=== PATIENT | female | born 2000 | race Caucasian/White ===

== ENCOUNTER 2024-10-03 16:20 | Observation (INO) ==
--- NOTE | 2024-10-03 16:34 | Emergency Department Note ---
Impression & Plan Traumatic hematoma of lower back, Back pain, Lumbar transverse process fracture, Acute hyponatremia, Fracture of lumbar spine ED Provider Note NAME: MARIANA MARTINO AGE: 24 SEX: F : 2000 ARRIVES VIA: Walk-In INFORMANT: Patient, ED PROVIDER(S): Antoine Bustamante MD CHIEF COMPLAINT: Horse carriage accident, low back pain MEDICAL DECISION MAKING: Patient presents due to concern for being run over by a horse carriage with associated low back pain. IV was established and blood work was obtained. Patient was ordered IV morphine IV Tylenol and taken over for CAT scan CT head neck chest abdomen pelvis as well as thoracic and lumbar spine. Patient's blood work shows a white count of 11 with a normal hemoglobin and platelet count. The patient's kidney function unremarkable sodium 129 with a potassium of 3.5. Patient's calcium of 8.4. Patient's CT head cervical spine and chest are negative. Thoracic spine also negative. The patient CT abdomen pelvis as well as lumbar spine shows subcutaneous hematoma left lower back with hematoma surrounding edema. Patient also with acute fractures of the left L2-L4 transverse processes. Age- indeterminate fracture of the right L5 inferior facet. Mild chronic appearing height loss of L5 with anterior listhesis and associated central and right paracentral disc herniation without stenosis. Patient did receive repeat rounds of IV morphine. The patient did have borderline soft blood pressures the patient was also ordered IV fentanyl after subsequent inadequate pain control. Patient also was given IV Toradol. I did speak with the assistive technology specialist Ny Bo PA-C stated the patient would not require any operative treatment given the patient's CT findings. Patient was trialed to be up and ambulatory but was unable to do so. Given these concerns I did speak the on-call medicine service and the patient was admitted by Dr. Garcia. Discussion w/ other healthcare providers: Ny Bo PA-C orthopedic spine under Dr. Salazar Prior /Outside records reviewed: None Differential diagnosis: Fracture, dislocation, contusion, strain, sprain, ICH, hemothorax, intra- abdominal injury, anemia among other causes were considered. Diagnostics, as interpreted by me: ECG: Sinus with PVCs, rate of 78, normal ME and QRS, normal axis. No obvious STEMI. Cardiac monitoring: An order was placed for continuous cardiac monitoring. The monitor shows a rate of 79 with sinus rhythm. Patient was placed on pulse oximetry Medical decision rules: None Imaging studies: I informally interpreted the patient's chest x-ray does not show obvious pneumonia or pneumothorax with formal report to follow. HPI: Patient presents from home due to concern for being run over by a horse carriage about 25 to 30 minutes prior to arrival. The patient reports that the horse was trying to move when she tried to control the horse started running off and she was taken under part of the carriage. Patient does complain of lower back pain. The patient denies any specific numbness or weakness of her lower extremities but does have difficulty with moving her leg secondary to pain at least. Patient denies any chest pains or shortness of breath no head or neck pain. The patient denies any chest or abdominal pains. PAST MEDICAL HISTORY: See Below PAST SURGICAL HISTORY: See Below SOCIAL HISTORY: See Below HOME MEDICATIONS: See Below ALLERGIES: See Below VITALS: See Below PHYSICAL EXAMINATION: GENERAL: NAD, non-toxic. Prone. EYE EXAM: Normal conjunctiva. PERRL, no anisocoria and EOM's grossly intact w/o pain. Head: Normocephalic atraumatic. OROPHARYNX: Moist mucus membranes, grossly normal dentition. NECK: Trachea midline, no stridor. Supple, no nuchal rigidity, no adenopathy, non-tender. No signs of meningismus. FROM of the neck with good chin to chest and neck extension. No midline C-spine TTP. LUNGS: Clear to auscultation. Normal chest wall mechanics. HEART: NSR, no MRG. ABDOMEN: Abdomen soft, non-tender, no masses, no rebound or guarding. BACK: No CVA TTP. No pain to the midline thoracic spine, mild pain to the distal portion of the lumbar sacral area more prominent on the left posterior SI with abrasions and bruising/hematoma. SKIN: No rashes and no bruising. UPPER EXTREMITIES: Upper extremities are grossly normal. LOWER EXTREMITIES: Grossly normal, no edema. NEURO EXAM: A&O x3, cranial nerves II-XII grossly intact, normal speech, moves all 4 extremities no sensory deficits in the bilateral lower extremities able to flex and extend at the knee. Able to raise both legs off the bed. No saddle anesthesia. Past Med/Surg History Problem List (Updated 10/03/24 @ 19:40 by Antoine Bustamante MD) Fracture of lumbar spine (Acute) Acute hyponatremia (Acute) Lumbar transverse process fracture (Acute) Back pain (Acute) Traumatic hematoma of lower back (Acute) Social History Smoking Status: Never smoker Feels Safe at Home: Yes Results & Data (ED) Vital Signs Vital Signs - 24 hr 10/03/24 16:21 10/03/24 16:21 10/03/24 16:55 Temperature 36.5 C 36.5 C Temperature Source Temporal Artery Scan Pulse Rate 84 84 Pulse Rate [Apical] 88 Pulse Rate from SpO2 Sensor Respiratory Rate 20 20 16 Respiratory Effort / Characteristics Non-Labored Spontaneous Non-Labored Spontaneous Respiratory Depth Normal Normal Respiratory Pattern Blood Pressure 113/75 113/75 Blood Pressure [Right Arm] 100/69 Blood Pressure Mean 87 Blood Pressure Mean [Right Arm] 79 Blood Pressure Position [Right Arm] Pulse Oximetry 97 97 100 Oxygen Delivery Method Room Air Room Air Room Air Oxygen Flow Rate Sepsis Recent Fever Within 48 Hours No Sepsis New/Unexplained Change in Mental Status No Sepsis Action Taken by Nursing No Action Required 10/03/24 16:55 10/03/24 16:55 10/03/24 16:58 Temperature Temperature Source Pulse Rate 66 Pulse Rate [Apical] Pulse Rate from SpO2 Sensor Respiratory Rate 14 Respiratory Effort / Characteristics Respiratory Depth Respiratory Pattern Blood Pressure 100/69 Blood Pressure [Right Arm] Blood Pressure Mean 72 Blood Pressure Mean [Right Arm] Blood Pressure Position [Right Arm] Pulse Oximetry 99 99 Oxygen Delivery Method Room Air Room Air Oxygen Flow Rate 0 Sepsis Recent Fever Within 48 Hours Sepsis New/Unexplained Change in Mental Status Sepsis Action Taken by Nursing 10/03/24 17:00 10/03/24 17:00 10/03/24 17:15 Temperature 36.6 C Temperature Source Oral Pulse Rate Pulse Rate [Apical] 75 Pulse Rate from SpO2 Sensor Respiratory Rate 16 Respiratory Effort / Characteristics Non-Labored Spontaneous Respiratory Depth Normal Respiratory Pattern Blood Pressure 107/61 101/59 L Blood Pressure [Right Arm] 107/61 Blood Pressure Mean 80 78 Blood Pressure Mean [Right Arm] 76 Blood Pressure Position [Right Arm] Semi-fowlers Pulse Oximetry 98 Oxygen Delivery Method Room Air Oxygen Flow Rate Sepsis Recent Fever Within 48 Hours Sepsis New/Unexplained Change in Mental Status Sepsis Action Taken by Nursing 10/03/24 17:15 10/03/24 17:18 10/03/24 17:30 Temperature Temperature Source Pulse Rate 78 Pulse Rate [Apical] Pulse Rate from SpO2 Sensor 78 Respiratory Rate 16 Respiratory Effort / Characteristics Respiratory Depth Respiratory Pattern Blood Pressure 101/59 L 93/62 L Blood Pressure [Right Arm] Blood Pressure Mean 78 78 Blood Pressure Mean [Right Arm] Blood Pressure Position [Right Arm] Pulse Oximetry 100 Oxygen Delivery Method Oxygen Flow Rate Sepsis Recent Fever Within 48 Hours Sepsis New/Unexplained Change in Mental Status Sepsis Action Taken by Nursing 10/03/24 17:36 10/03/24 17:42 10/03/24 17:45 Temperature Temperature Source Pulse Rate 76 82 Pulse Rate [Apical] Pulse Rate from SpO2 Sensor 76 82 Respiratory Rate 19 13 Respiratory Effort / Characteristics Respiratory Depth Respiratory Pattern Blood Pressure 94/56 L Blood Pressure [Right Arm] Blood Pressure Mean 67 Blood Pressure Mean [Right Arm] Blood Pressure Position [Right Arm] Pulse Oximetry 100 100 Oxygen Delivery Method Oxygen Flow Rate Sepsis Recent Fever Within 48 Hours Sepsis New/Unexplained Change in Mental Status Sepsis Action Taken by Nursing 10/03/24 18:00 10/03/24 18:14 10/03/24 18:45 Temperature Temperature Source Pulse Rate Pulse Rate [Apical] 77 75 85 Pulse Rate from SpO2 Sensor Respiratory Rate 17 18 17 Respiratory Effort / Characteristics Non-Labored Spontaneous Non-Labored Spontaneous Non-Labored Spontaneous Respiratory Depth Normal Normal Normal Respiratory Pattern Blood Pressure Blood Pressure [Right Arm] 90/51 L 98/50 L 89/61 L Blood Pressure Mean Blood Pressure Mean [Right Arm] 64 66 70 Blood Pressure Position [Right Arm] Semi-fowlers Semi-fowlers Pulse Oximetry 100 99 99 Oxygen Delivery Method Room Air Room Air Oxygen Flow Rate Sepsis Recent Fever Within 48 Hours Sepsis New/Unexplained Change in Mental Status Sepsis Action Taken by Nursing 10/03/24 19:00 10/03/24 19:19 Temperature Temperature Source Pulse Rate 77 Pulse Rate [Apical] 83 Pulse Rate from SpO2 Sensor Respiratory Rate 16 Respiratory Effort / Characteristics Non-Labored Spontaneous Respiratory Depth Normal Respiratory Pattern Regular Blood Pressure Blood Pressure [Right Arm] 96/66 L Blood Pressure Mean Blood Pressure Mean [Right Arm] 76 Blood Pressure Position [Right Arm] Lying Pulse Oximetry 100 Oxygen Delivery Method Room Air Oxygen Flow Rate Sepsis Recent Fever Within 48 Hours Sepsis New/Unexplained Change in Mental Status Sepsis Action Taken by Nursing Laboratory Data 10/03/24 18:04 10/03/24 16:56 Lab Results 10/03/24 10/03/24 10/03/24 Range/Units 16:56 17:01 18:04 WBC Cancelled 11.21 H RBC Cancelled 4.09 L Hgb Cancelled 12.3 POC Hgb 9.9 L (12.0-16.0) g/dl Hct Cancelled 34.8 L POC Hct 29 L (37-47) % MCV Cancelled 85.1 MCH Cancelled 30.1 MCHC Cancelled 35.3 RDW Std Deviation Cancelled 38.0 RDW Coeff of Amador Cancelled 12.4 Plt Count Cancelled 242 MPV Cancelled 9.5 Immature Gran % (Auto) Cancelled 0.4 Neut % (Auto) Cancelled 86.3 Lymph % (Auto) Cancelled 6.6 Hand % (Auto) Cancelled 6.1 Eos % (Auto) Cancelled 0.2 Baso % (Auto) Cancelled 0.4 Neut # (Auto) Cancelled 9.67 H Lymph # (Auto) Cancelled 0.74 L Hand # (Auto) Cancelled 0.68 H Eos # (Auto) Cancelled 0.02 Baso # (Auto) Cancelled 0.05 Immature Gran # (Auto) Cancelled 0.05 Absolute Nucleated RBC Cancelled Nucleated RBC % (auto) Cancelled Neutrophils % (Manual) Cancelled Band Neutrophils % Cancelled Lymphocytes % (Manual) Cancelled Prolymphocyte % Cancelled Reactive Lymphs % (Man) Cancelled Monocytes % (Manual) Cancelled Eosinophils % (Manual) Cancelled Basophils % (Manual) Cancelled Metamyelocytes % (Man) Cancelled Myelocytes % (Man) Cancelled Promyelocytes % (Man) Cancelled Blast Cells % (Manual) Cancelled Plasma Cell % (Manual) Cancelled Other Cells % Cancelled Nucleated RBC % Cancelled Neutrophils # (Manual) Cancelled Band Neutrophils # Cancelled Total Absolute Neuts Cancelled Lymphocytes # (Manual) Cancelled Prolymphocyte # Cancelled Reactive Lymphs # Cancelled Total Abs Lymphocytes Cancelled Monocytes # (Manual) Cancelled Eosinophils # (Manual) Cancelled Basophils # (Manual) Cancelled Metamyelocytes # (Man) Cancelled Myelocytes # (Manual) Cancelled Promyelocytes # (Man) Cancelled Blast Cells # (Man) Cancelled Plasma Cell # (Manual) Cancelled Other Cells # Cancelled Nucleated RBCs # (Man) Cancelled Hypersegmented Neuts Cancelled Hyposegmented Neuts Cancelled Hypogranular Neuts Cancelled Large Granular Lymphs Cancelled # Lrg Granular Lymphs Cancelled Hairy Cells Cancelled Smudge Cells Cancelled Toxic Granulation Cancelled Toxic Vacuolation Cancelled Dohle Bodies Cancelled Marito Rods Cancelled Platelet Estimate Cancelled Hypogranular Platelets Cancelled Giant Platelets Cancelled Platelet Satelliting Cancelled RBC Morphology Cancelled Polychromasia Cancelled Hypochromasia Cancelled Poikilocytosis Cancelled Basophilic Stippling Cancelled Anisocytosis Cancelled Microcytosis Cancelled Macrocytosis Cancelled Spherocytes Cancelled Pappenheimer Bodies Cancelled Sickle Cells Cancelled Target Cells Cancelled Tear Drop Cells Cancelled Ovalocytes Cancelled Stomatocytes Cancelled Conway-Eleva Bodies Cancelled Echinocytes Cancelled Acanthocytes (Spur) Cancelled Rouleaux Cancelled RBC Agglutinates Cancelled Schistocytes Cancelled Sezary Cell Cancelled PT 11.4 (9.0-12.0) Seconds INR 1.1 (0.9-1.1) APTT 23 (21-31) Seconds PTT Ratio 0.9 POC Sodium 122 L (135-144) mmol/L Sodium 129 L (136-145) mmol/L POC Potassium 3.1 L (3.3-5.0) mmol/L Potassium 3.5 (3.5-5.1) mmol/L POC Chloride 93 L (101-112) mmol/L Chloride 102 (98-107) mmol/L Carbon Dioxide 21 (21-32) mmol/L POC Total CO2 17 L (24-31) mmol/L Anion Gap 6 (3-11) POC Anion Gap 15.0 L (16-25) mmol/L POC BUN 17 (7-18) mg/dl BUN 20 (6-23) mg/dl Creatinine 0.61 (0.6-1.2) mg/dl POC Creatinine 1.5 H (0.6-1.3) mg/dl Est Cr Clr Drug Dosing 135.4 ml/min eGFR 128.75 BUN/Creatinine Ratio 32.8 H (10-20) Glucose 119 H (70-99(Fasting)) mg/dl POC Glucose (other) 106 H (70-99) mg/dl Calcium 8.4 L (8.6-10.3) mg/dl POC Ioniz Calcium Narinder 0.98 L (1.12-1.32) mmol/l Total Bilirubin 0.5 (0.2-1.0) mg/dl AST 33 (13-39) U/L ALT 49 (7-52) U/L Alkaline Phosphatase 42 (34-104) U/L Total Protein 5.8 L (6.0-8.3) gm/dl Albumin 4.1 (3.4-5.0) gm/dl Globulin 1.7 L (2.5-4.0) gm/dl Albumin/Globulin Ratio 2.4 H (0.9-2) Lipase 25 (11-82) U/L Blood Parasites ID Cancelled Administered Medications Discontinued Medications Fentanyl Citrate (Fentanyl Citrate Pf 100 Mcg/2 Ml Vial) 50 mcg IV NOW STA Stop: 10/03/24 18:16 Last Admin: 10/03/24 18:21 Dose: 50 mcg Documented By: MMF Acetaminophen (Ofirmev) 1,000 mg in 100 mls @ 400 mls/hr IV NOW STA Stop: 10/03/24 16:44 Last Infusion: 10/03/24 17:19 Dose: Infused Documented By: Admin: 10/03/24 16:59 Dose: 400 mls/hr Documented By: MMF Ioversol (Optiray 320 100ml) 94 ml IV ONCE ONE Stop: 10/03/24 16:38 Last Admin: 10/03/24 16:38 Dose: 94 ml Documented By: FABIO Ketorolac Tromethamine (Ketorolac Tromethamine 15 Mg/Ml Vial) 10 mg IV NOW ONE Stop: 10/03/24 18:16 Last Admin: 10/03/24 18:21 Dose: 10 mg Documented By: MMF Morphine Sulfate (Morphine Sulfate 4 Mg/Ml 1 Ml Carp\Vial) 4 mg IV NOW STA Stop: 10/03/24 16:31 Last Admin: 10/03/24 16:45 Dose: 4 mg Documented By: MMF Morphine Sulfate (Morphine Sulfate 10 Mg/Ml Carp/Vial) 6 mg IV NOW STA Stop: 10/03/24 16:52 Last Admin: 10/03/24 16:59 Dose: 6 mg Documented By: MMF Morphine Sulfate (Morphine Sulfate 4 Mg/Ml 1 Ml Carp\Vial) 6 mg IV NOW STA Stop: 10/03/24 18:10 Last Admin: 10/03/24 18:25 Dose: Not Given Documented By: MMF Imaging Data Radiologist's Impression: Chest X-Ray 10/03/24 16:28 EXAM: Radiograph of the Chest 1 View INDICATION: Trauma. TECHNIQUE: Frontal view of the chest. COMPARISON: No relevant prior studies available. FINDINGS: Lungs and pleural spaces: No consolidation or pulmonary edema. No pleural effusion or pneumothorax. Heart: Shape and configuration within normal limits allowing for technique. Mediastinum: Normal contour. Bones/joints: No fracture, erosion or dislocation. Soft tissues: No abnormality noted. No radiopaque foreign body noted. Upper abdomen: No abnormality noted. IMPRESSION: No abnormality noted. ACT 112: Negative or not required by law. Electronically signed by Hailee Nava 10-03-2024 5:[address] 10/03/24 16:28 EXAM: CT Lumbar Spine With Intravenous Contrast INDICATION: Trauma. TECHNIQUE: Axial computed tomography images of the lumbar spine without intravenous contrast. Sagittal and coronal reformatted images were created and reviewed. This CT exam was performed using one or more of the following dose reduction techniques: automated exposure control, adjustment of the mA and/or kV according to patient size, and/or use of iterative reconstruction technique.94 cc Optiray 320 injected intravenously. COMPARISON: No relevant prior studies available. FINDINGS: Limitations: None. Vertebrae: There are acute fractures of the left L2-L4 transverse processes. There is an age-indeterminate fracture of the right inferior L5 facet. There is grade 1-2 lumbosacral anterolisthesis. There is very mild chronic appearing height loss of L5. Sacrum/coccyx: No significant abnormality noted. No acute change noted. Discs/spinal canal/neural foramina: There is mild disc space loss L5-S1. There is generalized disc bulge with mild ventral stenosis at L4-L5. There is central and right paracentral disc herniation L5-S1 without stenosis. Soft tissues: No intrapelvic hematoma. IMPRESSION: 1. Acute fractures left L2-L4 transverse processes. 2. Age-indeterminate fracture of the right L5 inferior facet. 3. Mild chronic appearing height loss of L5 with grade 1-2 L5-S1 anterolisthesis. 4. Central and right paracentral disc herniation L5-S1 without stenosis. ACT 112: Negative or not required by law. Electronically signed by Hailee Nava 10-03-2024 5:25 PM Pelvis X-Ray 10/03/24 16:28 EXAM: Radiographs of the Pelvis 1 View INDICATION: Trauma. TECHNIQUE: Frontal view of the pelvis. COMPARISON: No relevant prior studies available. FINDINGS: Limitations: None. Bones/joints: Known L4 transverse process fracture is poorly defined due to overlying artifact. No other fracture noted. Proximal femora intact. No dislocation. Intact arcuate lines of the sacrum. Soft tissues: No abnormality noted. No radiopaque foreign body noted. IMPRESSION: Known left L4 transverse process fracture is poorly defined due to overlying artifact. No other fracture noted. ACT 112: Negative or not required by law. Electronically signed by Hailee Nava 10-03-2024 5:[address] 10/03/24 16:28 EXAM: CT Thoracic Spine With Intravenous Contrast INDICATION: Trauma. TECHNIQUE: Axial computed tomography images of the thoracic spine with intravenous contrast. Sagittal and coronal reformatted images were created and reviewed. This CT exam was performed using one or more of the following dose reduction techniques: automated exposure control, adjustment of the mA and/or kV according to patient size, and/or use of iterative reconstruction technique. CONTRAST: 94ml of Optiray 320 was administered intravenously. COMPARISON: No relevant prior studies available. FINDINGS: Limitations: None. Vertebrae: Vertebral body heights maintained. No fracture or significant subluxation. Discs/spinal canal/neural foramina: No significant disc space abnormality or stenosis. Other bones/joints: No abnormality noted. Soft tissues: No significant abnormality noted. Heart: No abnormality noted. Mediastinum: No significant abnormality noted. Liver: No significant abnormality noted. IMPRESSION: No thoracic spine fracture. ACT 112: Negative or not required by law. Electronically signed by Hailee Nava 10-03-2024 5:28 PM Abdomen/Pelvis CT 10/03/24 16:29 EXAM: CT Abdomen and Pelvis With Intravenous Contrast INDICATION: Trauma. TECHNIQUE: Axial computed tomography images of the abdomen and pelvis with intravenous contrast. Sagittal and coronal reformatted images were created and reviewed. This CT exam was performed using one or more of the following dose reduction techniques: automated exposure control, adjustment of the mA and/or kV according to patient size, and/or use of iterative reconstruction technique. CONTRAST: 94ml of Optiray 320 was administered intravenously. COMPARISON: No relevant prior studies available. FINDINGS: Limitations: None. Lung bases: No abnormality noted. Pleural space: No visualized pleural effusion or pneumothorax. Heart: No abnormality noted. Mediastinum: No abnormality noted. ABDOMEN: Liver: No abnormality noted. Gallbladder and bile ducts: No calcified stones or surrounding fluid. Pancreas: Homogeneous enhancement. No mass, inflammation or ductal dilation. Spleen: No significant abnormality noted. Adrenals: No significant abnormality noted. Kidneys and ureters: Normal enhancement. No mass, hydronephrosis or visualized stone. Stomach and bowel: No distension or mucosal thickening. No inflammation noted. PELVIS: Appendix: No findings to suggest acute appendicitis. Bladder: No filling defects to suggest mass or large stone. No inflammation. Reproductive: No abnormalities noted. ABDOMEN and PELVIS: Intraperitoneal space: No free air. No significant fluid collection. Bones/joints: There is acute fracture of the left L2-L4 transverse processes. There is an age-indeterminate fracture of the inferior right L5 facet with grade 1-2 anterolisthesis at L5-S1. Soft tissues: There is a subcutaneous hematoma left lower back with hematoma and surrounding edema in total measuring 10.2 cm transverse by 3.9 cm AP by 7.9 cm long. Vasculature: No abdominal aortic aneurysm. Lymph nodes: No pathologically enlarged lymph nodes. IMPRESSION: 1. There is a subcutaneous hematoma left lower back with hematoma and surrounding edema in total measuring 10.2 cm transverse by 3.9 cm AP by 7.9 cm long. 2. There are acute fractures of the left L2-L4 transverse processes. There is an age-indeterminate fracture of the inferior right L5 facet with grade 1-2 anterolisthesis at L5-S1. 3. No traumatic change of the solid organs or aorta. ACT 112: Negative or not required by law. Electronically signed by Hailee Nava 10-03-2024 5:[address] 10/03/24 16:29 EXAM: CT Cervical Spine Without Intravenous Contrast INDICATION: Trauma. TECHNIQUE: Axial computed tomography images of the cervical spine without intravenous contrast. Sagittal and coronal reformatted images were created and reviewed. This CT exam was performed using one or more of the following dose reduction techniques: automated exposure control, adjustment of the mA and/or kV according to patient size, and/or use of iterative reconstruction technique. COMPARISON: No relevant prior studies available. FINDINGS: Limitations: None. Vertebrae: There is reversal of the normal cervical curvature typical of spasm. No fracture or subluxation. Discs/spinal canal/neural foramina: No significant disc space abnormality or stenosis. Soft tissues: No significant abnormality noted. Lung apices: No significant abnormality noted. IMPRESSION: There is reversal of the normal cervical curvature typical of spasm. No fracture or subluxation. ACT 112: Negative or not required by law. Electronically signed by Hailee Nava 10-03-2024 5:[address] 10/03/24 16:29 EXAM: CT Chest With Intravenous Contrast INDICATION: Trauma. TECHNIQUE: Axial computed tomography images of the chest with intravenous contrast. Sagittal and coronal reformatted images were created and reviewed. This CT exam was performed using one or more of the following dose reduction techniques: automated exposure control, adjustment of the mA and/or kV according to patient size, and/or use of iterative reconstruction technique. CONTRAST: 94ml of Optiray 320 was administered intravenously. COMPARISON: No relevant prior studies available. FINDINGS: Limitations: None. Lungs and pleural spaces: No abnormality noted. No mass. No consolidation. No pneumothorax. No significant effusion. Heart: No abnormality noted. Thyroid: No abnormality noted. Bones/joints: No acute changes. Soft tissues: No significant abnormality noted. Vasculature: No abnormality noted. No thoracic aortic aneurysm. Lymph nodes: No enlarged lymph nodes. IMPRESSION: No abnormality noted. ACT 112: Negative or not required by law. Electronically signed by Hailee Nava 10-03-2024 5:[address] 10/03/24 16:29 EXAM: CT Head Without Intravenous Contrast INDICATION: History Reason For Study TECHNIQUE: Axial computed tomography images of the head/brain without intravenous contrast. Sagittal and/or coronal reformats are provided. Sagittal and coronal reformatted images were created and reviewed. This CT exam was performed using one or more of the following dose reduction techniques: automated exposure control, adjustment of the mA and/or kV according to patient size, and/or use of iterative reconstruction technique. COMPARISON: No relevant prior studies available. FINDINGS: Limitations: None. Brain and extra-axial spaces: No abnormality noted. No hemorrhage. No significant white matter disease. No edema. No ventriculomegaly. Bones/joints: No acute changes. Soft tissues: No significant abnormality noted. Vasculature: No acute abnormality noted. Sinuses: No layering fluid in the visualized portions of the paranasal sinuses.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
[2024-10-03] MEDS: OPTIRAY 320 100ml IV ONE (16:38)
[2024-10-03] MEDS: MoRPHine SULFATE 4 MG/ML 1 ML CARP\\VIAL IV STA ×2 (16:45→18:25)
[2024-10-03] MEDS: ACETAMINOPHEN 1,000 MG/100 ML VIAL IV STA (16:59)
[2024-10-03] MEDS: MoRPHine SULFATE 10 MG/ML CARP/VIAL IV STA (16:59)
--- NOTE | 2024-10-03 17:10 | CT Scan Report ---
EXAM: CT Head Without Intravenous Contrast INDICATION: History Reason For Study TECHNIQUE: Axial computed tomography images of the head/brain without intravenous contrast. Sagittal and/or coronal reformats are provided. Sagittal and coronal reformatted images were created and reviewed. This CT exam was performed using one or more of the following dose reduction techniques: automated exposure control, adjustment of the mA and/or kV according to patient size, and/or use of iterative reconstruction technique. COMPARISON: No relevant prior studies available. FINDINGS: Limitations: None. Brain and extra-axial spaces: No abnormality noted. No hemorrhage. No significant white matter disease. No edema. No ventriculomegaly. Bones/joints: No acute changes. Soft tissues: No significant abnormality noted. Vasculature: No acute abnormality noted. Sinuses: No layering fluid in the visualized portions of the paranasal sinuses. Mastoid air cells: No mastoid effusion. Orbits: No significant abnormality noted. IMPRESSION: No abnormality noted. ACT 112: Negative or not required by law. Electronically signed by Hailee Nava 10-03-2024 5:10 PM
[2024-10-03 17:13] LABS: iSTAT Creatinine 1.5 mg/dl (0.6-1.3); iSTAT Hemoglobin 9.9 g/dl (12.0-16.0); iSTAT Ionized Calcium 0.98 mmol/l (1.12-1.32); iSTAT Potassium 3.1 mmol/L (3.3-5.0)
--- NOTE | 2024-10-03 17:13 | CT Scan Report ---
EXAM: CT Cervical Spine Without Intravenous Contrast INDICATION: Trauma. TECHNIQUE: Axial computed tomography images of the cervical spine without intravenous contrast. Sagittal and coronal reformatted images were created and reviewed. This CT exam was performed using one or more of the following dose reduction techniques: automated exposure control, adjustment of the mA and/or kV according to patient size, and/or use of iterative reconstruction technique. COMPARISON: No relevant prior studies available. FINDINGS: Limitations: None. Vertebrae: There is reversal of the normal cervical curvature typical of spasm. No fracture or subluxation. Discs/spinal canal/neural foramina: No significant disc space abnormality or stenosis. Soft tissues: No significant abnormality noted. Lung apices: No significant abnormality noted. IMPRESSION: There is reversal of the normal cervical curvature typical of spasm. No fracture or subluxation. ACT 112: Negative or not required by law. Electronically signed by Hailee Nava 10-03-2024 5:13 PM
--- NOTE | 2024-10-03 17:16 | CT Scan Report ---
EXAM: CT Chest With Intravenous Contrast INDICATION: Trauma. TECHNIQUE: Axial computed tomography images of the chest with intravenous contrast. Sagittal and coronal reformatted images were created and reviewed. This CT exam was performed using one or more of the following dose reduction techniques: automated exposure control, adjustment of the mA and/or kV according to patient size, and/or use of iterative reconstruction technique. CONTRAST: 94ml of Optiray 320 was administered intravenously. COMPARISON: No relevant prior studies available. FINDINGS: Limitations: None. Lungs and pleural spaces: No abnormality noted. No mass. No consolidation. No pneumothorax. No significant effusion. Heart: No abnormality noted. Thyroid: No abnormality noted. Bones/joints: No acute changes. Soft tissues: No significant abnormality noted. Vasculature: No abnormality noted. No thoracic aortic aneurysm. Lymph nodes: No enlarged lymph nodes. IMPRESSION: No abnormality noted. ACT 112: Negative or not required by law. Electronically signed by Hailee Nava 10-03-2024 5:15 PM
--- NOTE | 2024-10-03 17:21 | CT Scan Report ---
EXAM: CT Abdomen and Pelvis With Intravenous Contrast INDICATION: Trauma. TECHNIQUE: Axial computed tomography images of the abdomen and pelvis with intravenous contrast. Sagittal and coronal reformatted images were created and reviewed. This CT exam was performed using one or more of the following dose reduction techniques: automated exposure control, adjustment of the mA and/or kV according to patient size, and/or use of iterative reconstruction technique. CONTRAST: 94ml of Optiray 320 was administered intravenously. COMPARISON: No relevant prior studies available. FINDINGS: Limitations: None. Lung bases: No abnormality noted. Pleural space: No visualized pleural effusion or pneumothorax. Heart: No abnormality noted. Mediastinum: No abnormality noted. ABDOMEN: Liver: No abnormality noted. Gallbladder and bile ducts: No calcified stones or surrounding fluid. Pancreas: Homogeneous enhancement. No mass, inflammation or ductal dilation. Spleen: No significant abnormality noted. Adrenals: No significant abnormality noted. Kidneys and ureters: Normal enhancement. No mass, hydronephrosis or visualized stone. Stomach and bowel: No distension or mucosal thickening. No inflammation noted. PELVIS: Appendix: No findings to suggest acute appendicitis. Bladder: No filling defects to suggest mass or large stone. No inflammation. Reproductive: No abnormalities noted. ABDOMEN and PELVIS: Intraperitoneal space: No free air. No significant fluid collection. Bones/joints: There is acute fracture of the left L2-L4 transverse processes. There is an age-indeterminate fracture of the inferior right L5 facet with grade 1-2 anterolisthesis at L5-S1. Soft tissues: There is a subcutaneous hematoma left lower back with hematoma and surrounding edema in total measuring 10.2 cm transverse by 3.9 cm AP by 7.9 cm long. Vasculature: No abdominal aortic aneurysm. Lymph nodes: No pathologically enlarged lymph nodes. IMPRESSION: 1. There is a subcutaneous hematoma left lower back with hematoma and surrounding edema in total measuring 10.2 cm transverse by 3.9 cm AP by 7.9 cm long. 2. There are acute fractures of the left L2-L4 transverse processes. There is an age-indeterminate fracture of the inferior right L5 facet with grade 1-2 anterolisthesis at L5-S1. 3. No traumatic change of the solid organs or aorta. ACT 112: Negative or not required by law. Electronically signed by Hailee Nava 10-03-2024 5:20 PM
[2024-10-03 17:24] LABS: Albumin Globulin Ratio 2.4 (0.9-2); Albumin Level 4.1 gm/dl (3.4-5.0); BUN Creatinine Ratio 32.8 (10-20); Bilirubin,Total 0.5 mg/dl (0.2-1.0); Calcium 8.4 mg/dl (8.6-10.3); Creatinine Clr Calc Pharmacy 135.4 ml/min; Globulin 1.7 gm/dl (2.5-4.0); Potassium 3.5 mmol/L (3.5-5.1); Total Protein 5.8 gm/dl (6.0-8.3)
--- NOTE | 2024-10-03 17:26 | CT Scan Report ---
EXAM: CT Lumbar Spine With Intravenous Contrast INDICATION: Trauma. TECHNIQUE: Axial computed tomography images of the lumbar spine without intravenous contrast. Sagittal and coronal reformatted images were created and reviewed. This CT exam was performed using one or more of the following dose reduction techniques: automated exposure control, adjustment of the mA and/or kV according to patient size, and/or use of iterative reconstruction technique.94 cc Optiray 320 injected intravenously. COMPARISON: No relevant prior studies available. FINDINGS: Limitations: None. Vertebrae: There are acute fractures of the left L2-L4 transverse processes. There is an age-indeterminate fracture of the right inferior L5 facet. There is grade 1-2 lumbosacral anterolisthesis. There is very mild chronic appearing height loss of L5. Sacrum/coccyx: No significant abnormality noted. No acute change noted. Discs/spinal canal/neural foramina: There is mild disc space loss L5-S1. There is generalized disc bulge with mild ventral stenosis at L4-L5. There is central and right paracentral disc herniation L5-S1 without stenosis. Soft tissues: No intrapelvic hematoma. IMPRESSION: 1. Acute fractures left L2-L4 transverse processes. 2. Age-indeterminate fracture of the right L5 inferior facet. 3. Mild chronic appearing height loss of L5 with grade 1-2 L5-S1 anterolisthesis. 4. Central and right paracentral disc herniation L5-S1 without stenosis. ACT 112: Negative or not required by law. Electronically signed by Hailee Nava 10-03-2024 5:25 PM
--- NOTE | 2024-10-03 17:28 | CT Scan Report ---
EXAM: CT Thoracic Spine With Intravenous Contrast INDICATION: Trauma. TECHNIQUE: Axial computed tomography images of the thoracic spine with intravenous contrast. Sagittal and coronal reformatted images were created and reviewed. This CT exam was performed using one or more of the following dose reduction techniques: automated exposure control, adjustment of the mA and/or kV according to patient size, and/or use of iterative reconstruction technique. CONTRAST: 94ml of Optiray 320 was administered intravenously. COMPARISON: No relevant prior studies available. FINDINGS: Limitations: None. Vertebrae: Vertebral body heights maintained. No fracture or significant subluxation. Discs/spinal canal/neural foramina: No significant disc space abnormality or stenosis. Other bones/joints: No abnormality noted. Soft tissues: No significant abnormality noted. Heart: No abnormality noted. Mediastinum: No significant abnormality noted. Liver: No significant abnormality noted. IMPRESSION: No thoracic spine fracture. ACT 112: Negative or not required by law. Electronically signed by Hailee Nava 10-03-2024 5:28 PM
--- NOTE | 2024-10-03 17:29 | XRay Report ---
EXAM: Radiograph of the Chest 1 View INDICATION: Trauma. TECHNIQUE: Frontal view of the chest. COMPARISON: No relevant prior studies available. FINDINGS: Lungs and pleural spaces: No consolidation or pulmonary edema. No pleural effusion or pneumothorax. Heart: Shape and configuration within normal limits allowing for technique. Mediastinum: Normal contour. Bones/joints: No fracture, erosion or dislocation. Soft tissues: No abnormality noted. No radiopaque foreign body noted. Upper abdomen: No abnormality noted. IMPRESSION: No abnormality noted. ACT 112: Negative or not required by law. Electronically signed by Haliee Nava 10-03-2024 5:28 PM
--- NOTE | 2024-10-03 17:30 | XRay Report ---
EXAM: Radiographs of the Pelvis 1 View INDICATION: Trauma. TECHNIQUE: Frontal view of the pelvis. COMPARISON: No relevant prior studies available. FINDINGS: Limitations: None. Bones/joints: Known L4 transverse process fracture is poorly defined due to overlying artifact. No other fracture noted. Proximal femora intact. No dislocation. Intact arcuate lines of the sacrum. Soft tissues: No abnormality noted. No radiopaque foreign body noted. IMPRESSION: Known left L4 transverse process fracture is poorly defined due to overlying artifact. No other fracture noted. ACT 112: Negative or not required by law. Electronically signed by Hailee Nava 10-03-2024 5:30 PM
[2024-10-03 17:35] LABS: INR 1.1 (0.9-1.1); Partial Thromboplastin Ratio 0.9; Partial Thromboplastin Time 23 Seconds (21-31); Prothrombin Time 11.4 Seconds (9.0-12.0)
[2024-10-03] MEDS: fentaNYL citrate PF 100 MCG/2 ML VIAL IV STA (18:21)
[2024-10-03] MEDS: KETOROLAC TROMETHAMINE 15 MG/ML VIAL IV ONE (18:21)
[2024-10-03 18:23] LABS: Basophils # (auto) 0.05 K/uL (0.00-0.20); Basophils % (auto) 0.4 %; Eosinophils # (auto) 0.02 K/uL (0.00-0.50); Eosinophils % (auto) 0.2 %; Hematocrit (blood only) 34.8 % (37.0-47.0); Hemoglobin 12.3 g/dl (12.0-16.0); Immature Granulocytes # (auto) 0.05 K/uL (0.01-0.20); Immature Granulocytes % (auto) 0.4 %; Lymphocytes # (auto) 0.74 K/uL (1.20-3.40); Lymphocytes % (auto) 6.6 %; Mean Corpuscular Hemoglobin 30.1 pg (25.0-34.0); Mean Corpuscular Hgb Conc 35.3 g/dL (32.0-36.0); Mean Corpuscular Volume 85.1 fL (80.0-100.0); Mean Platelet Volume 9.5 fL (9.4-12.4); Monocytes # (auto) 0.68 K/uL (0.11-0.59); Monocytes % (auto) 6.1 %; Neutrophils # (auto) 9.67 K/uL (1.40-6.50); Neutrophils % (auto) 86.3 %; Platelet Count 242 K/uL (130-400); RDW Coefficient of Variation 12.4 % (11.5-14.5); Red Blood Count 4.09 M/uL (4.20-5.40); White Blood Count 11.21 K/ul (4.8-10.8)
[2024-10-03] MEDS: SODIUM CHLORIDE 0.9% 1,000 ML IV ONE (20:12)
[2024-10-03] MEDS ORDERED: POLYETHYLENE (MIRALAX) 17 GM PACK PO PRN (20:14)
[2024-10-03] MEDS ORDERED: ONDANSETRON INJ 2 MG/ML 2 ML VIAL IV PRN (20:14)
[2024-10-03] MEDS ORDERED: MELATONIN 3 MG TAB PO PRN (20:14)
--- NOTE | 2024-10-03 20:40 | History & Physical Report ---
Date of Service October 03, 2024 Assessment & Plan (1) Fracture of lumbar spine: (2) Acute hyponatremia: (3) Lumbar transverse process fracture: (4) Back pain: (5) Traumatic hematoma of lower back: (6) Laceration of left buttock: Plan Fracture of lumbar spine Pain control measures Ice as directed Orthopedic spine surgery consulted No evidence of neurologic compromise -PT consult Hyponatremia and elevated creatinine -Continue normal saline infusion Trend labs Patient appears dry Traumatic hematoma of left back/buttock -Ice as above Monitor CBC and hemoglobin -Monitor BP Laceration -Wound care VTE prophylaxis: Will hold on subcu heparin or Lovenox due to hematoma Patient is a full code Total of 75 minutes spent in the care and care coordination of this patient History of Present Illness Chief Complaint: Horse carriage accident, low back pain Primary Care Provider: KAVON PCP Zhanna Villagomez is a 24 y/o female patient with no significant medical issues who presented to the ED due to concern for being run over by a horse carriage with associated low back pain. The patient reports that the horse was trying to move and she tried to control the horse. The horse started running off and she was taken under part of the carriage. Patient has severe lower back pain. The patient denies any specific numbness or weakness of her lower extremities but does have difficulty with moving her leg secondary to pain at least. She has a cut on her upper left buttock from hitting the carriage. Patient denies any chest pains or shortness of breath no head or neck pain. The patient denies any chest or abdominal pains. She did not hit her head. No loss of consciousness. Patient was given IV morphine, IV Tylenol and trauma CT studies were performed. Patient's CT of the head, cervical spine and chest were negative. Thoracic spine was also negative. The CT abdomen/pelvis as well as lumbar spine shows subcutaneous hematoma of the left lower back with hematoma and surrounding edema. Patient also has acute fractures of the left L2-L4 transverse processes. There is an indeterminate fracture of the right L5 inferior facet. Patient had a mild drop in her blood pressure after the IV morphine. She was given normal saline. [facility] was notified. They feel there is nothing operative at this point. Past Med/Surg History Problem List (Updated 10/03/24 @ 21:06 by Jonathon Garcia DO) Laceration of left buttock Fracture of lumbar spine (Acute) Acute hyponatremia (Acute) Lumbar transverse process fracture (Acute) Back pain (Acute) Traumatic hematoma of lower back (Acute) Social History Smoking Status: Never smoker Feels Safe at Home: Yes Review of Systems Review of Systems: As per history of chief complaint. All other review of systems are negative. She has had no problems urinating. Physical Exam Physical Exam: General- adult female seen at bedside in the ED. Her and [id number] are present. Head- atraumatic Eyes- PERRL, EOMI, anicteric ENT- oropharynx clear Neck- supple, no JVD, no adenopathy, no thyromegaly; carotids +2/2, no bruits appreciated Lungs- clear to auscultation and percussion Heart- regular rhythm; no murmur, no gallop, no rub appreciated Abdomen- normal bowel sounds, soft, nontender, no masses or hepatosplenomegaly Extremities- no pretibial edema, no calf tenderness; peripheral pulses intact Neuro- alert, oriented x 3; PERRL, EOMI; no facial palsy; no dysarthria; motor 5/5 bilaterally; patellar DTRs +2/2; toes downgoing bilaterally; Skin- warm & dry she has a small superficial laceration on the left buttock area upper back area. Musculoskeletal: She is tender along the spinous processes and paraspinous musculature of the lumbar spine. Results & Data Results & Data Vital Signs (Past 12 Hours) Vital Signs Temp Pulse Pulse Resp BP BP Pulse Ox 10/03/24 20:31 75 102/52 L 10/03/24 20:12 74 19 100/65 100 10/03/24 19:48 77 104/54 L 10/03/24 19:34 81 88/57 L 10/03/24 19:19 77 10/03/24 19:00 83 16 96/66 L 100 10/03/24 18:45 85 17 89/61 L 99 10/03/24 18:14 75 18 98/50 L 99 10/03/24 18:00 77 17 90/51 L 100 10/03/24 17:45 94/56 L 10/03/24 17:42 82 13 100 10/03/24 17:36 76 19 100 10/03/24 17:30 93/62 L 10/03/24 17:18 78 16 100 10/03/24 17:15 101/59 L 10/03/24 17:15 101/59 L 10/03/24 17:00 107/61 10/03/24 17:00 36.6 C 75 16 107/61 98 10/03/24 16:58 100/69 10/03/24 16:55 66 14 99 10/03/24 16:55 99 10/03/24 16:55 88 16 100/69 100 10/03/24 16:21 36.5 C 84 20 113/75 97 10/03/24 16:21 36.5 C 84 20 113/75 97 O2 Del Method O2 Flow Rate 10/03/24 20:31 10/03/24 20:12 Room Air 10/03/24 19:48 10/03/24 19:34 10/03/24 19:19 10/03/24 19:00 Room Air 10/03/24 18:45 Room Air 10/03/24 18:14 10/03/24 18:00 Room Air 10/03/24 17:45 10/03/24 17:42 10/03/24 17:36 10/03/24 17:30 10/03/24 17:18 10/03/24 17:15 10/03/24 17:15 10/03/24 17:00 10/03/24 17:00 Room Air 10/03/24 16:58 10/03/24 16:55 Room Air 10/03/24 16:55 Room Air 0 10/03/24 16:55 Room Air 10/03/24 16:21 Room Air 10/03/24 16:21 Room Air Diagnostic Findings Laboratory Results WBC 11.21 K/ul (4.8-10.8) H 10/03/24 18:04 RBC 4.09 M/uL (4.20-5.40) L 10/03/24 18:04 Hgb 12.3 g/dl (12.0-16.0) 10/03/24 18:04 POC Hgb 9.9 g/dl (12.0-16.0) L 10/03/24 17:01 Hct 34.8 % (37.0-47.0) L 10/03/24 18:04 POC Hct 29 % (37-47) L 10/03/24 17:01 MCV 85.1 fL (80.0-100.0) 10/03/24 18:04 MCH 30.1 pg (25.0-34.0) 10/03/24 18:04 MCHC 35.3 g/dL (32.0-36.0) 10/03/24 18:04 RDW Std Deviation 38.0 fL (36.4-46.3) 10/03/24 18:04 RDW Coeff of Amador 12.4 % (11.5-14.5) 10/03/24 18:04 Plt Count 242 K/uL (130-400) 10/03/24 18:04 MPV 9.5 fL (9.4-12.4) 10/03/24 18:04 Immature Gran % (Auto) 0.4 % 10/03/24 18:04 Neut % (Auto) 86.3 % 10/03/24 18:04 Lymph % (Auto) 6.6 % 10/03/24 18:04 Pleasants % (Auto) 6.1 % 10/03/24 18:04 Eos % (Auto) 0.2 % 10/03/24 18:04 Baso % (Auto) 0.4 % 10/03/24 18:04 Neut # (Auto) 9.67 K/uL (1.40-6.50) H 10/03/24 18:04 Lymph # (Auto) 0.74 K/uL (1.20-3.40) L 10/03/24 18:04 [place] # (Auto) 0.68 K/uL (0.11-0.59) H 10/03/24 18:04 Eos # (Auto) 0.02 K/uL (0.00-0.50) 10/03/24 18:04 Baso # (Auto) 0.05 K/uL (0.00-0.20) 10/03/24 18:04 Immature Gran # (Auto) 0.05 K/uL (0.01-0.20) 10/03/24 18:04 Absolute Nucleated RBC Cancelled 10/03/24 16:56 Nucleated RBC % (auto) Cancelled 10/03/24 16:56 Neutrophils % (Manual) Cancelled 10/03/24 16:56 Band Neutrophils % Cancelled 10/03/24 16:56 Lymphocytes % (Manual) Cancelled 10/03/24 16:56 Prolymphocyte % Cancelled 10/03/24 16:56 Reactive Lymphs % (Man) Cancelled 10/03/24 16:56 Monocytes % (Manual) Cancelled 10/03/24 16:56 Eosinophils % (Manual) Cancelled 10/03/24 16:56 Basophils % (Manual) Cancelled 10/03/24 16:56 Metamyelocytes % (Man) Cancelled 10/03/24 16:56 Myelocytes % (Man) Cancelled 10/03/24 16:56 Promyelocytes % (Man) Cancelled 10/03/24 16:56 Blast Cells % (Manual) Cancelled 10/03/24 16:56 Plasma Cell % (Manual) Cancelled 10/03/24 16:56 Other Cells % Cancelled 10/03/24 16:56 Nucleated RBC % Cancelled 10/03/24 16:56 Neutrophils # (Manual) Cancelled 10/03/24 16:56 Band Neutrophils # Cancelled 10/03/24 16:56 Total Absolute Neuts Cancelled 10/03/24 16:56 Lymphocytes # (Manual) Cancelled 10/03/24 16:56 Prolymphocyte # Cancelled 10/03/24 16:56 Reactive Lymphs # Cancelled 10/03/24 16:56 Total Abs Lymphocytes Cancelled 10/03/24 16:56 Monocytes # (Manual) Cancelled 10/03/24 16:56 Eosinophils # (Manual) Cancelled 10/03/24 16:56 Basophils # (Manual) Cancelled 10/03/24 16:56 Metamyelocytes # (Man) Cancelled 10/03/24 16:56 Myelocytes # (Manual) Cancelled 10/03/24 16:56 Promyelocytes # (Man) Cancelled 10/03/24 16:56 Blast Cells # (Man) Cancelled 10/03/24 16:56 Plasma Cell # (Manual) Cancelled 10/03/24 16:56 Other Cells # Cancelled 10/03/24 16:56 Nucleated RBCs # (Man) Cancelled 10/03/24 16:56 Hypersegmented Neuts Cancelled 10/03/24 16:56 Hyposegmented Neuts Cancelled 10/03/24 16:56 Hypogranular Neuts Cancelled 10/03/24 16:56 Large Granular Lymphs Cancelled 10/03/24 16:56 # Lrg Granular Lymphs Cancelled 10/03/24 16:56 Hairy Cells Cancelled 10/03/24 16:56 Smudge Cells Cancelled 10/03/24 16:56 Toxic Granulation Cancelled 10/03/24 16:56 Toxic Vacuolation Cancelled 10/03/24 16:56 Dohle Bodies Cancelled 10/03/24 16:56 Marito Rods Cancelled 10/03/24 16:56 Platelet Estimate Cancelled 10/03/24 16:56 Hypogranular Platelets Cancelled 10/03/24 16:56 Giant Platelets Cancelled 10/03/24 16:56 Platelet Satelliting Cancelled 10/03/24 16:56 RBC Morphology Cancelled 10/03/24 16:56 Polychromasia Cancelled 10/03/24 16:56 Hypochromasia Cancelled 10/03/24 16:56 Poikilocytosis Cancelled 10/03/24 16:56 Basophilic Stippling Cancelled 10/03/24 16:56 Anisocytosis Cancelled 10/03/24 16:56 Microcytosis Cancelled 10/03/24 16:56 Macrocytosis Cancelled 10/03/24 16:56 Spherocytes Cancelled 10/03/24 16:56 Pappenheimer Bodies Cancelled 10/03/24 16:56 Sickle Cells Cancelled 10/03/24 16:56 Target Cells Cancelled 10/03/24 16:56 Tear Drop Cells Cancelled 10/03/24 16:56 Ovalocytes Cancelled 10/03/24 16:56 Stomatocytes Cancelled 10/03/24 16:[address] [place] Bodies Cancelled 10/03/24 16:56 Echinocytes Cancelled 10/03/24 16:56 Acanthocytes (Spur) Cancelled 10/03/24 16:56 Rouleaux Cancelled 10/03/24 16:56 RBC Agglutinates Cancelled 10/03/24 16:56 Schistocytes Cancelled 10/03/24 16:56 Sezary Cell Cancelled 10/03/24 16:56 PT 11.4 Seconds (9.0-12.0) 10/03/24 16:56 INR 1.1 (0.9-1.1) 10/03/24 16:56 APTT 23 Seconds (21-31) 10/03/24 16:56 PTT Ratio 0.9 10/03/24 16:56 POC Sodium 122 mmol/L (135-144) L 10/03/24 17:01 Sodium 129 mmol/L (136-145) L 10/03/24 16:56 POC Potassium 3.1 mmol/L (3.3-5.0) L 10/03/24 17:01 Potassium 3.5 mmol/L (3.5-5.1) 10/03/24 16:56 POC Chloride 93 mmol/L (101-112) L 10/03/24 17:01 Chloride 102 mmol/L (98-107) 10/03/24 16:56 Carbon Dioxide 21 mmol/L (21-32) 10/03/24 16:56 POC Total CO2 17 mmol/L (24-31) L 10/03/24 17:01 Anion Gap 6 (3-11) 10/03/24 16:56 POC Anion Gap 15.0 mmol/L (16-25) L 10/03/24 17:01 POC BUN 17 mg/dl (7-18) 10/03/24 17:01 BUN 20 mg/dl (6-23) 10/03/24 16:56 Creatinine 0.61 mg/dl (0.6-1.2) 10/03/24 16:56 POC Creatinine 1.5 mg/dl (0.6-1.3) H 10/03/24 17:01 Est Cr Clr Drug Dosing 135.4 ml/min 10/03/24 16:56 eGFR 128.75 10/03/24 16:56 BUN/Creatinine Ratio 32.8 (10-20) H 10/03/24 16:56 Glucose 119 mg/dl (70-99(Fasting)) H 10/03/24 16:56 POC Glucose (other) 106 mg/dl (70-99) H 10/03/24 17:01 Calcium 8.4 mg/dl (8.6-10.3) L 10/03/24 16:56 POC Ioniz Calcium Narinder 0.98 mmol/l (1.12-1.32) L 10/03/24 17:01 Total Bilirubin 0.5 mg/dl (0.2-1.0) 10/03/24 16:56 AST 33 U/L (13-39) 10/03/24 16:56 ALT 49 U/L (7-52) 10/03/24 16:56 Alkaline Phosphatase 42 U/L (34-104) 10/03/24 16:56 Total Protein 5.8 gm/dl (6.0-8.3) L 10/03/24 16:56 Albumin 4.1 gm/dl (3.4-5.0) 10/03/24 16:56 Globulin 1.7 gm/dl (2.5-4.0) L 10/03/24 16:56 Albumin/Globulin Ratio 2.4 (0.9-2) H 10/03/24 16:56 Lipase 25 U/L (11-82) 10/03/24 16:56 Blood Parasites ID Cancelled 10/03/24 16:56 Impressions Chest X-Ray 10/03/24 16:28 EXAM: Radiograph of the Chest 1 View INDICATION: Trauma. TECHNIQUE: Frontal view of the chest. COMPARISON: No relevant prior studies available. FINDINGS: Lungs and pleural spaces: No consolidation or pulmonary edema. No pleural effusion or pneumothorax. Heart: Shape and configuration within normal limits allowing for technique. Mediastinum: Normal contour. Bones/joints: No fracture, erosion or dislocation. Soft tissues: No abnormality noted. No radiopaque foreign body noted. Upper abdomen: No abnormality noted. IMPRESSION: No abnormality noted. ACT 112: Negative or not required by law. Electronically signed by Hailee Nava 10-03-2024 5:[address] 10/03/24 16:28 EXAM: CT Lumbar Spine With Intravenous Contrast INDICATION: Trauma. TECHNIQUE: Axial computed tomography images of the lumbar spine without intravenous contrast. Sagittal and coronal reformatted images were created and reviewed. This CT exam was performed using one or more of the following dose reduction techniques: automated exposure control, adjustment of the mA and/or kV according to patient size, and/or use of iterative reconstruction technique.94 cc Optiray 320 injected intravenously. COMPARISON: No relevant prior studies available. FINDINGS: Limitations: None. Vertebrae: There are acute fractures of the left L2-L4 transverse processes. There is an age-indeterminate fracture of the right inferior L5 facet. There is grade 1-2 lumbosacral anterolisthesis. There is very mild chronic appearing height loss of L5. Sacrum/coccyx: No significant abnormality noted. No acute change noted. Discs/spinal canal/neural foramina: There is mild disc space loss L5-S1. There is generalized disc bulge with mild ventral stenosis at L4-L5. There is central and right paracentral disc herniation L5-S1 without stenosis. Soft tissues: No intrapelvic hematoma. IMPRESSION: 1. Acute fractures left L2-L4 transverse processes. 2. Age-indeterminate fracture of the right L5 inferior facet. 3. Mild chronic appearing height loss of L5 with grade 1-2 L5-S1 anterolisthesis. 4. Central and right paracentral disc herniation L5-S1 without stenosis. ACT 112: Negative or not required by law. Electronically signed by Hailee Nava 10-03-2024 5:25 PM Pelvis X-Ray 10/03/24 16:28 EXAM: Radiographs of the Pelvis 1 View INDICATION: Trauma. TECHNIQUE: Frontal view of the pelvis. COMPARISON: No relevant prior studies available. FINDINGS: Limitations: None. Bones/joints: Known L4 transverse process fracture is poorly defined due to overlying artifact. No other fracture noted. Proximal femora intact. No dislocation. Intact arcuate lines of the sacrum. Soft tissues: No abnormality noted. No radiopaque foreign body noted. IMPRESSION: Known left L4 transverse process fracture is poorly defined due to overlying artifact. No other fracture noted. ACT 112: Negative or not required by law. Electronically signed by Hailee Nava 10-03-2024 5:[address] 10/03/24 16:28 EXAM: CT Thoracic Spine With Intravenous Contrast INDICATION: Trauma. TECHNIQUE: Axial computed tomography images of the thoracic spine with intravenous contrast. Sagittal and coronal reformatted images were created and reviewed. This CT exam was performed using one or more of the following dose reduction techniques: automated exposure control, adjustment of the mA and/or kV according to patient size, and/or use of iterative reconstruction technique. CONTRAST: 94ml of Optiray 320 was administered intravenously. COMPARISON: No relevant prior studies available. FINDINGS: Limitations: None. Vertebrae: Vertebral body heights maintained. No fracture or significant subluxation. Discs/spinal canal/neural foramina: No significant disc space abnormality or stenosis. Other bones/joints: No abnormality noted. Soft tissues: No significant abnormality noted. Heart: No abnormality noted. Mediastinum: No significant abnormality noted. Liver: No significant abnormality noted. IMPRESSION: No thoracic spine fracture. ACT 112: Negative or not required by law. Electronically signed by AnvaHailee 10-03-2024 5:28 PM Abdomen/Pelvis CT 10/03/24 16:29 EXAM: CT Abdomen and Pelvis With Intravenous Contrast INDICATION: Trauma. TECHNIQUE: Axial computed tomography images of the abdomen and pelvis with intravenous contrast. Sagittal and coronal reformatted images were created and reviewed. This CT exam was performed using one or more of the following dose reduction techniques: automated exposure control, adjustment of the mA and/or kV according to patient size, and/or use of iterative reconstruction technique. CONTRAST: 94ml of Optiray 320 was administered intravenously. COMPARISON: No relevant prior studies available. FINDINGS: Limitations: None. Lung bases: No abnormality noted. Pleural space: No visualized pleural effusion or pneumothorax. Heart: No abnormality noted. Mediastinum: No abnormality noted. ABDOMEN: Liver: No abnormality noted. Gallbladder and bile ducts: No calcified stones or surrounding fluid. Pancreas: Homogeneous enhancement. No mass, inflammation or ductal dilation. Spleen: No significant abnormality noted. Adrenals: No significant abnormality noted. Kidneys and ureters: Normal enhancement. No mass, hydronephrosis or visualized stone. Stomach and bowel: No distension or mucosal thickening. No inflammation noted. PELVIS: Appendix: No findings to suggest acute appendicitis. Bladder: No filling defects to suggest mass or large stone. No inflammation. Reproductive: No abnormalities noted. ABDOMEN and PELVIS: Intraperitoneal space: No free air. No significant fluid collection. Bones/joints: There is acute fracture of the left L2-L4 transverse processes. There is an age-indeterminate fracture of the inferior right L5 facet with grade 1-2 anterolisthesis at L5-S1. Soft tissues: There is a subcutaneous hematoma left lower back with hematoma and surrounding edema in total measuring 10.2 cm transverse by 3.9 cm AP by 7.9 cm long. Vasculature: No abdominal aortic aneurysm. Lymph nodes: No pathologically enlarged lymph nodes. IMPRESSION: 1. There is a subcutaneous hematoma left lower back with hematoma and surrounding edema in total measuring 10.2 cm transverse by 3.9 cm AP by 7.9 cm long. 2. There are acute fractures of the left L2-L4 transverse processes. There is an age-indeterminate fracture of the inferior right L5 facet with grade 1-2 anterolisthesis at L5-S1. 3. No traumatic change of the solid organs or aorta. ACT 112: Negative or not required by law. Electronically signed by Hailee Nava 10-03-2024 5:[address] 10/03/24 16:29 EXAM: CT Cervical Spine Without Intravenous Contrast INDICATION: Trauma. TECHNIQUE: Axial computed tomography images of the cervical spine without intravenous contrast. Sagittal and coronal reformatted images were created and reviewed. This CT exam was performed using one or more of the following dose reduction techniques: automated exposure control, adjustment of the mA and/or kV according to patient size, and/or use of iterative reconstruction technique. COMPARISON: No relevant prior studies available. FINDINGS: Limitations: None. Vertebrae: There is reversal of the normal cervical curvature typical of spasm. No fracture or subluxation. Discs/spinal canal/neural foramina: No significant disc space abnormality or stenosis. Soft tissues: No significant abnormality noted. Lung apices: No significant abnormality noted. IMPRESSION: There is reversal of the normal cervical curvature typical of spasm. No fracture or subluxation. ACT 112: Negative or not required by law. Electronically signed by Hailee Nava 10-03-2024 5:[address] 10/03/24 16:29 EXAM: CT Chest With Intravenous Contrast INDICATION: Trauma. TECHNIQUE: Axial computed tomography images of the chest with intravenous contrast. Sagittal and coronal reformatted images were created and reviewed. This CT exam was performed using one or more of the following dose reduction techniques: automated exposure control, adjustment of the mA and/or kV according to patient size, and/or use of iterative reconstruction technique. CONTRAST: 94ml of Optiray 320 was administered intravenously. COMPARISON: No relevant prior studies available. FINDINGS: Limitations: None. Lungs and pleural spaces: No abnormality noted. No mass. No consolidation. No pneumothorax. No significant effusion. Heart: No abnormality noted. Thyroid: No abnormality noted. Bones/joints: No acute changes. Soft tissues: No significant abnormality noted. Vasculature: No abnormality noted. No thoracic aortic aneurysm. Lymph nodes: No enlarged lymph nodes. IMPRESSION: No abnormality noted. ACT 112: Negative or not required by law. Electronically signed by Hailee Nava 10-03-2024 5:[address] 10/03/24 16:29 EXAM: CT Head Without Intravenous Contrast INDICATION: History Reason For Study TECHNIQUE: Axial computed tomography images of the head/brain without intravenous contrast. Sagittal and/or coronal reformats are provided. Sagittal and coronal reformatted images were created and reviewed. This CT exam was performed using one or more of the following dose reduction techniques: automated exposure control, adjustment of the mA and/or kV according to patient size, and/or use of iterative reconstruction technique. COMPARISON: No relevant prior studies available. FINDINGS: Limitations: None. Brain and extra-axial spaces: No abnormality noted. No hemorrhage. No significant white matter disease. No edema. No ventriculomegaly. Bones/joints: No acute changes. Soft tissues: No significant abnormality noted. Vasculature: No acute abnormality noted. Sinuses: No layering fluid in the visualized portions of the paranasal sinuses. Mastoid air cells: No mastoid effusion. Orbits: No significant abnormality noted. IMPRESSION: No abnormality noted. ACT 112: Negative or not required by law. Electronically signed by Hailee Nava 10-03-2024 5:10 PM Code Status & VTE Plan VTE Prophylaxis Plan VTE Prophylaxis will be ordered: No Reason for no VTE drug order: Contraindicated (1) Fracture of lumbar spine Encounter type: initial encounter Fracture morphology: unspecified fracture morphology Fracture type: closed Lumbar vertebra fracture level: unspecified lumbar vertebra Qualified Code(s): S32.009A - Unspecified fracture of unspecified lumbar vertebra, initial encounter for closed fracture (3) Lumbar transverse process fracture Encounter type: initial encounter Fracture type: closed Qualified Code(s): S32.009A - Unspecified fracture of unspecified lumbar vertebra, initial encounter for closed fracture (4) Back pain Back pain laterality: left Back pain location: low back pain Chronicity: acute Sciatica laterality: sciatica of left side Sciatica presence: with sciatica Qualified Code(s): M54.42 - Lumbago with sciatica, left side (5) Traumatic hematoma of lower back Encounter type: initial encounter Qualified Code(s): S30.0XXA - Contusion of lower back and pelvis, initial encounter
[2024-10-03] MEDS: ACETAMINOPHEN 325 MG TAB PO SCH (21:01)
[2024-10-03] MEDS: SODIUM CHLORIDE 0.9% 500 ML IV SCH (22:54)
[2024-10-04] MEDS: CYCLOBENZAPRINE HCL 5 MG TAB PO STA (02:01)
[2024-10-04 03:41] LABS: Hematocrit (blood only) 33.7 % (37.0-47.0); Hemoglobin 11.6 g/dl (12.0-16.0); Mean Corpuscular Hemoglobin 29.6 pg (25.0-34.0); Mean Corpuscular Hgb Conc 34.4 g/dL (32.0-36.0); Mean Platelet Volume 9.6 fL (9.4-12.4); Platelet Count 233 K/uL (130-400); RDW Coefficient of Variation 12.6 % (11.5-14.5); RDW Standard Deviation 39.1 fL (36.4-46.3); Red Blood Count 3.92 M/uL (4.20-5.40); White Blood Count 5.85 K/ul (4.8-10.8)
[2024-10-04 03:57] LABS: BUN Creatinine Ratio 30.6 (10-20); Calcium 8.5 mg/dl (8.6-10.3); Creatinine Clr Calc Pharmacy 154.2 ml/min; Potassium 3.7 mmol/L (3.5-5.1)
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
[2024-10-04 04:21] LABS: Pregnancy Test, Serum Negative (Negative)
[2024-10-04 04:28] LABS: Appearance Urine Cloudy (Clear); Bacteria Urine Automated None Seen (None Seen); Bilirubin Urine Negative (Negative); Blood Urine Negative (Negative); Color Urine Yellow; Epithelial Cell Urine Auto 0-2 /hpf (0-2); Glucose Urine UA Negative (Negative); Ketones Urine 1+ (Negative); Leukocyte Esterase Urine Negative (Negative); Nitrite Urine Negative (Negative); Protein Urine Negative (Negative); RBC Urine Automated 0-2 /hpf (0-2); Specific Gravity Urine 1.031 (1.000-1.030); Urobilinogen Urine Negative (Negative); WBC Urine Automated 0-5 /hpf (0-5)
[2024-10-04] MEDS: GADOBUTROL 65ML VIAL IV ONE (05:17)
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
[2024-10-04] MEDS: traMADol HCL 50 MG TABLET PO STA (06:49)
[2024-10-04] MEDS: HYDROmorphone INJ 1 MG/ML SYRINGE IV PRN (07:23)
[2024-10-04 08:04] VITALS: BP 105/61; PULSE 84; RESP 15; TEMP 98.1; O2SAT 99
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
[2024-10-04] MEDS: HYDROmorphone INJ 1 MG/ML SYRINGE IV STA (13:16)
--- NOTE | 2024-10-04 15:13 | Electrocardiogram Report ---
Test Reason : Blood Pressure : */* mmHG Vent. Rate : 78 BPM Atrial Rate : 78 BPM P-R Int : 120 ms QRS Dur : 100 ms QT Int : 432 ms P-R-T Axes : 26 48 22 degrees QTcB Int : 492 ms Sinus rhythm with frequent Premature ventricular complexes and Premature atrial complexes Nonspecific T wave abnormality Prolonged QT Abnormal ECG No previous ECGs available Confirmed by Ralph Lin ([id number]) on 10/04/2024 3:12:45 PM Referred By: REFERRED SELF Confirmed By: Ralph Lin
== END 2024-10-04 15:13 | disposition short-term general hospital (02) ==
LOC: ED 16:20 → 3W 16:20 → SUATTDRO 20:14 → 3W 22:13